=== PATIENT | male | born 1955 | race Two or more races ===

== ENCOUNTER 2018-05-27 09:38 | Emergency (ER) | payer OTHER ==
[~2018-05-27] VITALS: Ht 172.7 cm; Wt 82.8 kg
[2018-05-27] MEDS ORDERED: PRAZ5CAP2 PO (09:54)
[2018-05-27] MEDS ORDERED: LOSA100T7 PO (09:55)
[2018-05-27] MEDS ORDERED: TAMS0.4C2 PO (09:57)
[2018-05-27] MEDS ORDERED: SPIR25TA5 PO (09:57)
[2018-05-27] MEDS ORDERED: PANT40TA5 PO (09:57)
[2018-05-27] MEDS ORDERED: FINA5TAB4 PO (09:57)
[2018-05-27] MEDS ORDERED: ATOR-2 PO (09:57)
[2018-05-27] MEDS ORDERED: DIPHENHYDRAMINE 25 MG CAPSULE ONE (10:15)
[2018-05-27] MEDS ORDERED: DIPHENHYDRAMINE 25 MG CAPSULE PO ONE (10:30)
[2018-05-27 10:56] VITALS: BP 130/76
== END 2018-05-27 11:13 | disposition home or self-care (01) ==
LOC: ED 10:50
DX: T78.40XA Allergy, unspecified, initial encounter (principal); E11.9 Type 2 diabetes mellitus without complications; N40.0 Benign prostatic hyperplasia without lower urinary tract symptoms
CPT/HCPCS: 99283; J7512; Q0163